=== PATIENT | female | born 1955 | race Caucasian/White ===

== ENCOUNTER → 2018-02-16 09:50 | Outpatient (CLI) | payer OTHER, SELFPAY ==
--- NOTE | 2018-02-16 09:54 | US_ITS ---
STUDY: ABDOMINAL ULTRASOUND - RIGHT UPPER QUADRANT REASON FOR VISIT: Female, 62 years old. Epigastric pain TECHNIQUE: Ultrasound evaluation of the right upper quadrant was performed with real-time and static hackett-scale imaging. TECHNICAL QUALITY: Adequate. COMPARISON: None. FINDINGS: Liver: The liver measures 15.3 cm. There is normal echogenicity of the liver. The bile ducts are within normal limits. There is hepatic color flow. The direction of portal flow is hepatopetal. There is a left hepatic 1.9 cm cyst. Gallbladder: Normal distended gallbladder. The gallbladder wall measures 3.2 mm. There is a positive sonographic Brown's sign. There is no pericholecystic fluid. Cholelithiasis is noted with diffuse posterior acoustic shadowing of the gallbladder. Common Bile Duct (C.B.D.): The common bile duct measures 3.1 mm. Pancreas: Normal size of the head, body and tail of the pancreas. There is normal echogenicity of the pancreas. There is no demonstrated pancreatic mass or cyst. Right Kidney: Normal size of the right kidney. The right kidney measures 11.1 x 5.1 x 5.3 cm. Normal renal cortex. The right cortex measures 1.7 cm. There is no demonstrated renal mass or cyst. There is no right hydronephrosis. US/Abdomen Limited IMPRESSION: Borderline gallbladder wall thickness with cholelithiasis and positive sonographic Brown's sign. No significant biliary dilatation. Left hepatic cyst. Electronically Signed: Eric Butler DO at 9:36 EDT Tel [phone], Service support ,
== END ==
PROVIDERS: Family Provider Family Medicine; PCP Family Medicine; Visit Provider Family Medicine
DX: R10.10 Upper abdominal pain, unspecified (principal)
CPT/HCPCS: 76705

== ENCOUNTER 2018-03-08 07:23 | Day surgery (SDC) | payer OTHER, SELFPAY ==
[2018-03-08] VITALS (10 sets, daily range): BP systolic 133–164; BP diastolic 80–99; PULSE 59–97; RESP 16–18; TEMP 36.4–37.2; O2SAT 90–98; BMI 35.8
--- NOTE | 2018-03-08 07:34 | EKG12_ITS ---
Test Reason : PREOP Blood Pressure : / mmHG Vent. Rate : 068 BPM Atrial Rate : 068 BPM P-R Int : 182 ms QRS Dur : 092 ms QT Int : 418 ms P-R-T Axes : 043 -04 042 degrees QTc Int : 444 ms Normal sinus rhythm Normal ECG No previous ECGs available Confirmed by TONG CARRERA, EMILY ([id number]), film editor supervisor SAMMY JACQUES ([id number]) on 03/09/2018 12:55:18 PM Referred By: Reddy Beaulieu Confirmed By:EMILY FORTUNE MD
[2018-03-08 08:16] LABS: Anion Gap 7 (5-15); BUN 9 mg/dL (7-18); BUN/Creat Ratio 13.4 RATIO (10-20); Calcium,Total 8.9 mg/dL (8.5-10.1); Chloride 105 mmol/L (98-107); Creatinine, Serum 0.67 mg/dL (0.55-1.02); EST Glomerular Filtration Rate 95 mL/min (>60); Est Glom Filt Rate - Afr Amer 115 mL/min (>60); Glucose 100 mg/dL (74-106); Potassium 3.7 mmol/L (3.5-5.1); Sodium Level 141 mmol/L (136-145); Thyroid Stim Hormone (TSH) 6.97 uIU/mL (0.358-3.74)
[2018-03-08] MEDS: Cefazolin 2 GM in 0.9% Normal Saline 100 ML IV (09:16)
--- NOTE | 2018-03-08 09:25 | DCINST_ITS ---
Discharge Diet: Light diet - advance as tolerated Discharge Activity: May Not Drive - for 2-3 days or while taking narcotic pain medications., - - Do not drive, work heavy equipment or sign legal documents for 24 hours. May shower in (days): 1 - with the bandage in place. Additional Activity Instructions:: Pain medication may cause nausea. You should typically eat light foods as you take your pain medications. Pain medication may also cause constipation. If this is a problem for you, please discuss with your doctor. Call your doctor if your incision/area has: Continuous Slow Oozing, Sudden Increased Bleeding, Increased Pain/ Swelling, Increased Redness, Foul Smelling Discharge Call your doctor if you observe: Fever of 101 or Higher Suture Line Care: Avoid Pulling/Pushing, Avoid Pinching/Bending Additional Dressing/Incision Instructions:: Leave operative bandaids on for 2 days. When you remove dressing, leave Steri-Strips on until your follow-up appointment, or until the Steri-Strips fall off on their own. Allergies/Adverse Reactions: Allergies No Known Allergies Allergy (Verified 03/05/18 12:39) Medications to take at Discharge lisinopril 10 mg tablet 10 mg PO QDAY 02/26/18 Chlorthalidone 12.5 mg PO DAILY 03/05/18 Levothyroxine [Synthroid] 175 mcg PO DAILY 03/05/18 Paroxetine [Paxil] 10 mg PO DAILY 03/05/18 Oxycodone HCl/Acetaminophen [Percocet 5/325] 1 - 2 tab PO Q4H PRN PRN 4 Days # 30 tab 03/08/18 The following prescriptions were given: Oxycodone HCl/Acetaminophen [Percocet 5/325] 1 - 2 tab PO Q4H PRN PRN 4 Days # 30 tab PRN Reason: Pain Primary Care Physician: Ravi Maldonado [Primary Care Provider] - Please Follow Up With: Reddy Beaulieu MD - Please call [phone] to schedule an appointment. When: 7 days after your surgery.
--- NOTE | 2018-03-08 09:27 | OP.PCM_ITS ---
Problem List (1) Calculus of gallbladder with acute cholecystitis without obstruction Status: Acute Report of Operation Date of Procedure: 03/08/18 Pre-Operative Diagnosis: K80.00 calculus of the gallbladder with cholecystitis without biliary obstruction unspecified cholecystitis acuity Post-Operative Diagnosis: SAME Surgery/Procedure Performed:: Laparoscopic cholecystectomy Type of Anesthesia:: General Anesthesiologist: Rell Oviedo Estimated Blood Loss (mL): <25 CC Description of Procedure: Patient was brought into the operating room placed in the supine position. Under excellent general trach intubation the abdomen was sterilely prepped and draped in usual fashion. Local was injected intraumbilically. Dissection was carried down to the fascia. Fascia was grasped with a [place]. Varies needle was placed inside the abdomen. The abdomen was insufflated to 15 torr. A 10/ 12 trocar was placed without difficulty. Patient was placed in the head up and rotated to the left position. A subxiphoid #5 trocar was placed, another #5 trocar was placed inferior to this, and finally a #5 trocar was placed laterally. All these under direct visualization without injury to underlying structures. Patient had moderate amount of adhesions on the liver and gallbladder which were taken down with electrocautery. Gallbladder was grasped and directed in a cephalad direction infundibulum was grasped retracted laterally I dissected out the cystic duct and the cystic artery and the liver bed identifying this triangle quite well. I placed hemoclips proximally and distally on the duct and ligated the duct identified the cystic artery place hemoclips proximally distally ligated the artery deliver the gallbladder from the gallbladder bed with use of electrocautery. I had excellent hemostasis. I placed a specimen a specimen bag and delivered through the umbilical port. I irrigated the right upper quadrant good hemostasis was noted. I removed all the trochars under direct visualization good hemostasis was noted. Close the fascia the umbilical port with a figure 8 stitch of 0 Vicryl. Incisions were closed with a particular stitches of 4-0 Monocryl. Steri-Strips are applied. Sterile dressings were applied patient tolerated the procedure well. - Admit VTE Documentation VTE Present on Admission: No VTE Mechan Device Prophylaxis: SCD's VTE Pharm Prophylaxis ordered?: No Reason prophylaxis not ordered:: Treatment Not Indicated
--- NOTE | 2018-03-08 09:35 | GALL_PTH ---
PATIENT: YUMIKO GARCIA LOC: [facility] [place] U#:[id number] AGE/SX: 62/F ROOM: RE03/08/[address]: Dr. Reddy Beaulieu MD : [id number] BED: DIS: 03/08/2018 SPEC #: [id number] RECD: 03/08/18 09:35 STATUS: TIM FANNY #: [id number] SADE: 03/08/18 09:[address]: Reddy Beaulieu DEPT: SURGICAL PATHOLOGY RECD BY: William Patel ENTERED: 03/08/18 12:17 SP TYPE: KATHI DELACRUZ DR: Dr. Ravi Maldonado MD Tissues: Gallbladder, NOS Procedures: Surgery Specimen Level III HEADER OPERATION: Laparoscopic cholecystectomy with IOC PRE-OP DIAGNOSIS: Calculus of gallbladder with cholecystitis TISSUE SUBMITTED: Gallbladder MICROSCOPIC DIAGNOSIS Gallbladder: Chronic cholecystitis and cholelithiasis. SJ:gabby 03/09/18 MICROSCOPIC DESCRIPTION Slides are reviewed. GROSS DESCRIPTION Received is one container labeled with the patient's name and designated gallbladder. The specimen consists of a gallbladder measuring 8 cm in length and 3 cm in diameter. The external surface is pink-barrett, smooth and glistening for the most part. Focally it is granular, hemorrhagic and contains cautery artifact. The gallbladder contains a small amount of green-yellow mucoid bile and multiple ovoid to slightly irregular greenish-yellow to orange stones. The largest stone measures 2.5 cm in greatest dimension and multiple smaller stones are also noted measuring in aggregate 2.5 x 3 x 1 cm. Some of the stones are also impacted at the cystic duct. The mucosa is bile-stained and without any mass lesions. The gallbladder wall measures up to 0.4 cm in thickness. An increased amount of subserosal fat is also noted. [employer] sections from the gallbladder and the cystic duct are submitted in one cassette. / SJ:gabby 03/08/18 TC:3 CPT: 59233
[2018-03-08] MEDS: Bupivacaine Mpf 0.5% 30 ML VIAL (09:58)
[2018-03-08] MEDS: oxyCODONE 5 MG Tablet PO (12:13)
== END 2018-03-08 13:43 | disposition home or self-care (01) ==
LOC: SDC 07:24 → AC 07:25
PROVIDERS: Anesthesiology; Family Provider Family Medicine; PCP Family Medicine; Visit Provider Surgery
PROC: (CPT 47610; principal; 2018-03-08 09:15)
DX: K80.12 Calculus of gallbladder with acute and chronic cholecystitis without obstruction (principal); I10 Essential (primary) hypertension; K21.9 Gastro-esophageal reflux disease without esophagitis; E06.9 Thyroiditis, unspecified; Z79.899 Other long term (current) drug therapy; Z78.0 Asymptomatic menopausal state
CPT/HCPCS: 47562; 80048; 84443; 88304; 93005; J7120; J2405

== ENCOUNTER → 2023-01-03 | Outpatient (CLI) | payer MEDICARE, OTHER, SELFPAY ==
--- NOTE | 2023-01-03 16:50 | RAD_ITS ---
STUDY: X-RAY - RIGHT ANKLE REASON FOR EXAM: Female, 67 years old patient with right-sided ankle injury. TECHNIQUE: 3 view(s) of the ankle. COMPARISON: None. FINDINGS: Normal visualized distal tibia and fibula. Normal medial and lateral malleoli. Normal tibiotalar articulation and ankle mortise. There is a plantar calcaneal spur. There is some chondrocalcinosis of the plantar fascia. Tarsal bones have normal alignment. There is moderately severe soft tissue swelling. RAD/Ankle min 3 Views IMPRESSION: 1. Calcaneal spur. 2. Soft tissue swelling. Electronically Signed: Laurence Blue MD at 0:33 EST ,
== END | disposition home or self-care (01) ==
LOC: RAD 16:46
PROVIDERS: PCP Family Medicine; Referring Provider Family Medicine; Visit Provider Family Medicine
DX: S99.911A Unspecified injury of right ankle, initial encounter (principal)
CPT/HCPCS: 73610

== ENCOUNTER → 2025-01-15 | Outpatient (CLI) | payer MEDICARE, OTHER, SELFPAY ==
[2025-01-15 15:34] LABS: Absolute Lymphocyte Count 1.48 X10^3/uL (0.83-4.51); Absolute Neutrophil Count 3.1 X10^3/uL (2.0-7.7); Basophil# 0.04 X10^3/uL; Basophil% 0.8 % (0-1); Eosinophil# 0.19 X10^3/uL; Eosinophils% 3.6 % (0-5); Hematocrit 46.2 % (37-47); Hemoglobin 15.1 g/dL (12.0-15.0); Lymphocyte # 1.48 X10^3/ul (0.83-4.51); Lymphocyte % 28.1 % (19-41); Mean Corp Hgb Conc 32.7 g/dL (32-36); Mean Corpuscular Hgb 30.7 pg (27.0-32.0); Mean Corpuscular Volume 93.9 fL (81-99); Mean Platelet Vol. 10.6 fl (6.2-12.0); Monocyte# 0.44 X10^3/uL; Monocyte% 8.4 % (0-10); NRBC Flagged by Analyzer 0 % (0-5); Neutrophil # 3.08 X10^3/uL (2.7-7.7); Neutrophil % 58.5 % (47-70); Platelet Count 240 K/mm3 (150-450); RBC Distribution Width CV 13.2 % (11.6-14.6); RBC Distribution Width SD 45.1 fl (35.1-43.9); Red Blood Count 4.92 M/mm3 (4.2-5.4); White Blood Count 5.3 K/mm3 (4.4-11.0)
[2025-01-15 16:14] LABS: ALB/GLOB Ratio 1.2 RATIO (0.9-2.4); AST(SGOT) 16 U/L (15-37); Alanine Aminotransfer ALT/SGPT 22 U/L (13-56); Albumin, Serum 3.7 g/dL (3.2-5.0); Alkaline Phosphatase 66 U/L (45-117); Anion Gap 7 (5-15); BUN 9 mg/dL (7-18); BUN/Creat Ratio 15.7 RATIO (10-20); Calcium,Total 9.5 mg/dL (8.5-10.1); Chloride 104 mmol/L (98-107); Cholesterol 174 mg/dL (200); Creatinine, Serum 0.57 mg/dL (0.55-1.02); EST Glomerular Filtration Rate 111 mL/min (>60); Est Glom Filt Rate - Afr Amer 135 mL/min (>60); Ferritin 227 ng/mL (8-252); Globulin 3.2 g/dL (2.2-4.2); Glucose 99 mg/dL (74-106); High Density Lipoprotein 90 mg/dL; Iron 106 ug/dL (50-170); Protein, Total 6.9 g/dL (6.4-8.2); Sodium Level 140 mmol/L (136-145); T4 Free Direct 0.89 ng/dL (0.76-1.46); Triglycerides 41 mg/dL; Very Low Density Lipoprotein 8 mg/dL (5-40)
[2025-01-16 14:35] LABS: Vitamin B12 210 pg/mL (211-911); Vitamin D,25 Hydroxy 35.4 ng/mL
== END | disposition home or self-care (01) ==
LOC: BFHLAB 11:22
PROVIDERS: PCP Nurse Practitioner Family; Visit Provider Nurse Practitioner Family
DX: I10 Essential (primary) hypertension (principal); E03.9 Hypothyroidism, unspecified; E78.5 Hyperlipidemia, unspecified; R53.83 Other fatigue; D50.9 Iron deficiency anemia, unspecified; E55.9 Vitamin D deficiency, unspecified
CPT/HCPCS: 36415; 80053; 80061; 82306; 82607; 82728; 83540; 84439; 84443; 85025

== ENCOUNTER → 2025-05-20 | Outpatient (CLI) | payer MEDICARE, OTHER, SELFPAY ==
[2025-05-20 16:26] LABS: Thyroid Stim Hormone (TSH) 0.169 uIU/mL (0.300-4.200)
[2025-05-20 16:27] LABS: Rheumatoid Factor < 10.0 IU/mL (<15); Uric Acid 4.7 mg/dL (2.6-6.0)
--- OUTSIDE RECORDS SUMMARY | 2025-05-20 22:16 | XMS RPT_ITS | CCD ---
Author Organization [facility] Care Team Providers Care Folder Gluer Operator Name Role Phone Dr. Ravi Maldonado Attending Dr. Ravi Lopez Primary Care Bria Louis Attending Unavailable Bria Sanchez Primary Care Unavailable Problems Problem Classification Problem Date Documented Da te Episodic/Chronic Essential hypertension (1 source) Essential (primary) hypertension; Translations: [Essential (primary) hypertension] Onset: 01-28-2025 Chronic Other screening for suspected conditions (not mental disorders or infectious disease) (3 sources) Encounter for screening mammogram for malignant neoplasm of breast; Translations: [Encntr screen mammogram for malignant neoplasm of breast] Onset: 07-20-2023 Episodic Residual codes; unclassified (3 sources) Asymptomatic menopausal state; Translations: [Asymptomatic menopausal state] Onset: 07-20-2023 Episodic Results Test Name Value Interpretation Reference Range Facil ity Vitamin B12on 01-16-2025 Cobalamin (Vitamin B12) [Mass/Vol] 210 pg/mL Low 211-911 [facility] Comment on above: Performed By: #### L 500.4100, L506.1000, L500.4050, L503.6150, L503.6550, L506.0400, L100.0100, L503.0105, L501.9520 #### [facility] [address] [place], [address] Vitamin D,25 Hydroxyon 01-16 Vitamin D 25-OH 35.4 ng/mL Normal [facility] Comment on above: Result Comment: Sherice min D 25(OH) Status Range Deficiency <20 ng/mL (50nmol/L) Insufficiency 20 - 30 ng/mL (50 - 75 nmol/L) Sufficiency 30 - 100 ng/mL (75 - 250 nmol/L) Toxicity >100 ng/mL (>250 nmol/L) Performed By: #### L 500.4100, L506.1000, L500.4050, L503.6150, L503.6550, L506.0400, L100.0100, L503.0105, L501.9520 #### [facility] [address] [place], [address] CBC W/Diff, Automatedon 12-28 Absolute Lymph 1.48 X10 3/uL Normal 0.83-4.51 [facility] Comment on above: Performed By: #### L 500.4100, L506.1000, L500.4050, L503.6150, L503.6550, L506.0400, L100.0100, L503.0105, L501.9520 #### [facility] [address] [place], [address] Absolute Neut 3.1 X10 3/uL Normal 2.0-7.7 [facility] Comment on above: Performed By: #### L 500.4100, L506.1000, L500.4050, L503.6150, L503.6550, L506.0400, L100.0100, L503.0105, L501.9520 #### [facility] [address] [place], [address] Basophils/100 WBC (Bld) 0.8 % Normal 0-1 [facility] Comment on above: Performed By: #### L 500.4100, L506.1000, L500.4050, L503.6150, L503.6550, L506.0400, L100.0100, L503.0105, L501.9520 #### [facility] [address] [place], [address] Eosinophils/100 WBC (Bld) 3.6 % Normal 0-5 [facility] Comment on above: Performed By: #### L 500.4100, L506.1000, L500.4050, L503.6150, L503.6550, L506.0400, L100.0100, L503.0105, L501.9520 #### [facility] [address] [place], [address] Erythrocyte distribution width (RBC) [Ratio] 13.2 % Normal 11.6-14.6 [facility] Comment on above: Performed By: #### L 500.4100, L506.1000, L500.4050, L503.6150, L503.6550, L506.0400, L100.0100, L503.0105, L501.9520 #### [facility] [address] [place], [address] Hematocrit (Bld) [Volume fraction] 46.2 % Normal 37-47 [facility] Comment on above: Performed By: #### L 500.4100, L506.1000, L500.4050, L503.6150, L503.6550, L506.0400, L100.0100, L503.0105, L501.9520 #### [facility] [address] [place], [address] Hemoglobin (Bld) [Mass/Vol] 15.1 g/dL High 12.0-15.0 [facility] Comment on above: Performed By: #### L 500.4100, L506.1000, L500.4050, L503.6150, L503.6550, L506.0400, L100.0100, L503.0105, L501.9520 #### [facility] [address] [place], [address] IG% 0.600 Normal 0.0-0.9 [facility] Comment on above: Result Comment: IG% - Immature Granulocytes (promyelocytes, myelocytes and metamyelocytes) > 1% indicates that a LEFT SHIFT is Present. Performed By: #### L 500.4100, L506.1000, L500.4050, L503.6150, L503.6550, L506.0400, L100.0100, L503.0105, L501.9520 #### [facility] [address] [place], [address] Lymphocytes/100 WBC (Bld) 28.1 % Normal 19-41 [facility] Comment on above: Performed By: #### L 500.4100, L506.1000, L500.4050, L503.6150, L503.6550, L506.0400, L100.0100, L503.0105, L501.9520 #### [facility] [address] [place], [address] MCH (RBC) [Entitic mass] 30.7 pg Normal 27.0-32.0 [facility] Comment on above: Performed By: #### L 500.4100, L506.1000, L500.4050, L503.6150, L503.6550, L506.0400, L100.0100, L503.0105, L501.9520 #### [facility] [address] [place], [address] MCHC (RBC) [Mass/Vol] 32.7 g/dL Normal 32-36 [facility] Comment on above: Performed By: #### L 500.4100, L506.1000, L500.4050, L503.6150, L503.6550, L506.0400, L100.0100, L503.0105, L501.9520 #### [facility] [address] [place], [address] MCV (RBC) [Entitic vol] 93.9 fL Normal 81-99 [facility] Comment on above: Performed By: #### L 500.4100, L506.1000, L500.4050, L503.6150, L503.6550, L506.0400, L100.0100, L503.0105, L501.9520 #### [facility] [address] [place], [address] Monocytes/100 WBC (Bld) 8.4 % Normal 0-10 [facility] Comment on above: Performed By: #### L 500.4100, L506.1000, L500.4050, L503.6150, L503.6550, L506.0400, L100.0100, L503.0105, L501.9520 #### [facility] [address] [place], [address] Neutrophils/100 WBC (Bld) 58.5 % Normal 47-70 [facility] Comment on above: Performed By: #### L 500.4100, L506.1000, L500.4050, L503.6150, L503.6550, L506.0400, L100.0100, L503.0105, L501.9520 #### [facility] [address] [place], [address] Nucleated RBC (Bld) [#/Vol] 0 10*3/uL Normal 0-5 [facility] Comment on above: Performed By: #### L 500.4100, L506.1000, L500.4050, L503.6150, L503.6550, L506.0400, L100.0100, L503.0105, L501.9520 #### [facility] [address] [place], [address] Platelet mean volume (Bld) [Entitic vol] 10.6 fL Normal 6.2-12.0 [facility] Comment on above: Performed By: #### L 500.4100, L506.1000, L500.4050, L503.6150, L503.6550, L506.0400, L100.0100, L503.0105, L501.9520 #### [facility] [address] [place], [address] Platelets (Bld) [#/Vol] 240 10*3/uL Normal 150-450 [facility] Comment on above: Performed By: #### L 500.4100, L506.1000, L500.4050, L503.6150, L503.6550, L506.0400, L100.0100, L503.0105, L501.9520 #### [facility] [address] [place], [address] RBC (Bld) [#/Vol] 4.92 10*6/uL Normal 4.2-5.4 [facility] Comment on above: Performed By: #### L 500.4100, L506.1000, L500.4050, L503.6150, L503.6550, L506.0400, L100.0100, L503.0105, L501.9520 #### [facility] [address] [place], [address] RDW SD 45.1 fl High 35.1-43.9 [facility] Comment on above: Performed By: #### L 500.4100, L506.1000, L500.4050, L503.6150, L503.6550, L506.0400, L100.0100, L503.0105, L501.9520 #### [facility] [address] [place], [address] WBC (Bld) [#/Vol] 5.3 10*3/uL Normal 4.4-11.0 [facility] Comment on above: Performed By: #### L 500.4100, L506.1000, L500.4050, L503.6150, L503.6550, L506.0400, L100.0100, L503.0105, L501.9520 #### [facility] [address] [place], [address] Comprehensive Metabolic Prof ilon 01-15-2025 Albumin [Mass/Vol] 3.7 g/dL Normal 3.2-5.0 [facility] Comment on above: Performed By: #### L 500.4100, L506.1000, L500.4050, L503.6150, L503.6550, L506.0400, L100.0100, L503.0105, L501.9520 #### [facility] [address] [place], [address] Albumin/Globulin [Mass ratio] 1.2 {ratio} Normal 0.9-2.4 [facility] Comment on above: Performed By: #### L 500.4100, L506.1000, L500.4050, L503.6150, L503.6550, L506.0400, L100.0100, L503.0105, L501.9520 #### [facility] [address] [place], [address] ALK P 66 U/L Normal 45-117 [facility] Comment on above: Performed By: #### L 500.4100, L506.1000, L500.4050, L503.6150, L503.6550, L506.0400, L100.0100, L503.0105, L501.9520 #### [facility] [address] [place], [address] ALT [Catalytic activity/Vol] 22 U/L Normal 13-56 [facility] Comment on above: Performed By: #### L 500.4100, L506.1000, L500.4050, L503.6150, L503.6550, L506.0400, L100.0100, L503.0105, L501.9520 #### [facility] [address] [place], [address] AST [Catalytic activity/Vol] 16 U/L Normal 15-37 [facility] Comment on above: Performed By: #### L 500.4100, L506.1000, L500.4050, L503.6150, L503.6550, L506.0400, L100.0100, L503.0105, L501.9520 #### [facility] [address] [place], [address] Bilirubin [Mass/Vol] 0.50 mg/dL Normal 0.20-1.00 [facility] Comment on above: Result Comment: For patients on eltrombopag therapy, use of Dimension [place] TBIL is not recommended. Performed By: #### L 500.4100, L506.1000, L500.4050, L503.6150, L503.6550, L506.0400, L100.0100, L503.0105, L501.9520 #### [facility] [address] [place], [address] BUN/CRE 15.7 RATIO Normal 10-20 [facility] Comment on above: Performed By: #### L 500.4100, L506.1000, L500.4050, L503.6150, L503.6550, L506.0400, L100.0100, L503.0105, L501.9520 #### [facility] [address] [place], [address] CA,Total 9.5 mg/dL Normal 8.5-10.1 [facility] Comment on above: Performed By: #### L 500.4100, L506.1000, L500.4050, L503.6150, L503.6550, L506.0400, L100.0100, L503.0105, L501.9520 #### [facility] [address] [place], [address] Chloride [Moles/Vol] 104 mmol/L Normal 98-107 [facility] Comment on above: Performed By: #### L 500.4100, L506.1000, L500.4050, L503.6150, L503.6550, L506.0400, L100.0100, L503.0105, L501.9520 #### [facility] [address] [place], [address] CO2 [Moles/Vol] 28.0 mmol/L Normal 21.0-32.0 [facility] Comment on above: Performed By: #### L 500.4100, L506.1000, L500.4050, L503.6150, L503.6550, L506.0400, L100.0100, L503.0105, L501.9520 #### [facility] [address] [place], [place], [address] Creatinine [Mass/Vol] 0.57 mg/dL Normal 0.55-1.02 [facility] Comment on above: Result Comment: The validity of the calculated GFR GFRAA in patients over 70 years has not been determined. Clinical correlation is essential. Performed By: #### L 500.4100, L506.1000, L500.4050, L503.6150, L503.6550, L506.0400, L100.0100, L503.0105, L501.9520 #### [facility] [address] [place], [place], [address] EST GFR - AA 135 mL/min Normal >60 [facility] Comment on above: Result Comment: Afri can Iranian GFR Calc Performed By: #### L 500.4100, L506.1000, L500.4050, L503.6150, L503.6550, L506.0400, L100.0100, L503.0105, L501.9520 #### [facility] [address] [place], [place], [id number] GAP 7 Normal 5-15 [facility] Comment on above: Performed By: #### L 500.4100, L506.1000, L500.4050, L503.6150, L503.6550, L506.0400, L100.0100, L503.0105, L501.9520 #### [facility] [address] [place], [address] GFR/1.73 sq M.predicted among non-blacks MDRD (S/P/Bld) [Vol rate/Area] 111 mL/min/{1.73_m2} Normal >60 [facility] Comment on above: Result Comment: Non- GFR Calc Performed By: #### L 500.4100, L506.1000, L500.4050, L503.6150, L503.6550, L506.0400, L100.0100, L503.0105, L501.9520 #### [facility] [address] [place], [address] Globulin (S) [Mass/Vol] 3.2 g/dL Normal 2.2-4.2 [facility] Comment on above: Performed By: #### L 500.4100, L506.1000, L500.4050, L503.6150, L503.6550, L506.0400, L100.0100, L503.0105, L501.9520 #### [facility] [address] [place], [address] Glucose [Mass/Vol] 99 mg/dL Normal 74-106 [facility] Comment on above: Performed By: #### L 500.4100, L506.1000, L500.4050, L503.6150, L503.6550, L506.0400, L100.0100, L503.0105, L501.9520 #### [facility] [address] [place], [address] Potassium [Moles/Vol] 4.0 mmol/L Normal 3.5-5.1 [facility] Comment on above: Performed By: #### L 500.4100, L506.1000, L500.4050, L503.6150, L503.6550, L506.0400, L100.0100, L503.0105, L501.9520 #### [facility] [address] [place], [address] Sodium [Moles/Vol] 140 mmol/L Normal 136-145 [facility] Comment on above: Performed By: #### L 500.4100, L506.1000, L500.4050, L503.6150, L503.6550, L506.0400, L100.0100, L503.0105, L501.9520 #### [facility] [address] [place], [address] T PROT 6.9 g/dL Normal 6.4-8.2 [facility] Comment on above: Performed By: #### L 500.4100, L506.1000, L500.4050, L503.6150, L503.6550, L506.0400, L100.0100, L503.0105, L501.9520 #### [facility] [address] [place], [place], [id number] Urea nitrogen [Mass/Vol] 9 mg/dL Normal 7-18 [facility] Comment on above: Performed By: #### L 500.4100, L506.1000, L500.4050, L503.6150, L503.6550, L506.0400, L100.0100, L503.0105, L501.9520 #### [facility] [address] [place], [address] Ferritinon 01-15-2025 Ferritin [Mass/Vol] 227 ng/mL Normal 8-252 [facility] Comment on above: Performed By: #### L 500.4100, L506.1000, L500.4050, L503.6150, L503.6550, L506.0400, L100.0100, L503.0105, L501.9520 #### [facility] [address] [place], [address] Ironon 01-15-2025 Iron [Mass/Vol] 106 ug/dL Normal 50-170 [facility] Comment on above: Performed By: #### L 500.4100, L506.1000, L500.4050, L503.6150, L503.6550, L506.0400, L100.0100, L503.0105, L501.9520 #### [facility] [address] [place], [address] Lipid Profileon 01-15-2025 Cholesterol [Mass/Vol] 174 mg/dL Normal 200 [facility] Comment on above: Result Comment: <200 mg/dL Desirable 200-240 mg/dL Borderline >240 mg/dL High Risk Performed By: #### L 500.4100, L506.1000, L500.4050, L503.6150, L503.6550, L506.0400, L100.0100, L503.0105, L501.9520 #### [facility] [address] [place], [address] Cholesterol in HDL [Mass/Vol] 90 mg/dL Normal [facility] Comment on above: Result Comment: The drugs N-Acetylcysteine and Metamizole may falsely depress this assay. Reference Range HDL <40 mg/dL Low HDL Cholesterol HDL >or= 60 mg/dL High HDL Cholesterol Performed By: #### L 500.4100, L506.1000, L500.4050, L503.6150, L503.6550, L506.0400, L100.0100, L503.0105, L501.9520 #### [facility] [address] [place], [address] Cholesterol in LDL [Mass/Vol] 76 mg/dL Normal 0-130 [facility] Comment on above: Performed By: #### L 500.4100, L506.1000, L500.4050, L503.6150, L503.6550, L506.0400, L100.0100, L503.0105, L501.9520 #### [facility] [address] [place], [address] Cholesterol in VLDL [Mass/Vol] 8 mg/dL Normal 5-40 [facility] Comment on above: Performed By: #### L 500.4100, L506.1000, L500.4050, L503.6150, L503.6550, L506.0400, L100.0100, L503.0105, L501.9520 #### [facility] [address] [place], [address] Triglyceride [Mass/Vol] 41 mg/dL Normal [facility] Comment on above: Result Comment: The drugs N-Acetylcysteine and Metamizole may falsely depress this assay. Serum Triglycerides Reference Interval Normal <150 mg/dL Borderline high 150 - 199 mg/dL High 200 - 499 mg/dL Very High > or = 500 mg/dL Performed By: #### L 500.4100, L506.1000, L500.4050, L503.6150, L503.6550, L506.0400, L100.0100, L503.0105, L501.9520 #### [facility] [address] [place], [address] T4 Free Directon 01-15-2025 T4 FREE DIRECT 0.89 ng/dL Normal 0.76-1.46 [facility] Comment on above: Performed By: #### L 500.4100, L506.1000, L500.4050, L503.6150, L503.6550, L506.0400, L100.0100, L503.0105, L501.9520 #### [facility] [address] [place], [address] Thyroid Stim Hormone (TSH)on 01-15-2025 TSH 8.180 uIU/mL High 0.358-3.740 [facility] Comment on above: Performed By: #### L 500.4100, L506.1000, L500.4050, L503.6150, L503.6550, L506.0400, L100.0100, L503.0105, L501.9520 #### [facility] [address] [place], [address] Encounters Encounter Date Encounter Type Care Provider Facility Start: 01-15-2025 End: 01-15-2025 ambulatory Bria Sanchez Facility:[facility] Start: 07-20-[address] Ravi Maldonado Facility:[id number] Payers Date Payer Category Payer Self-pay 2021 Medicare [id number] 2021 Unknown [id number] 1955 Unknown [id number] Unknown [id number] Progress note 01-18-2022 Note Date & Type Note Facility 01-18-2022 Note HNO ID: [id number] Author: Ivan Mcdonald MD Service: ? Author Type: Physician Type: Progress Notes Filed: 01/18/2022 11:10 AM Note Text: ASSESSMENT/PLAN: 1. Epiretinal membrane (ERM) of right eye - ICD9: 362.56, ICD10: H35.371 (primary diagnosis) -stable/ monitor. - OCT MACULA CIRRUS OU (BOTH EYES) 2. Ptosis of right eyelid - ICD9: 374.30, ICD10: H02.401 -stable/ observe. 3. Pseudophakia of both eyes - ICD9: V43.1, ICD10: Z96.1 - Intraocular lens in good position both eyes 4. Rosacea - ICD9: 695.3, ICD10: L71.9 Continue care with primary care physician. Ivan Mcdonald MD I have confirmed and edited as necessary the relevant ophthalmic history, review of systems, surgical history, and ophthalmological examination findings as obtained by the ophthalmic technical staff. I have seen and examined Uma Flaherty. I have discussed the examination findings, diagnosis, and treatment options with Uma Flaherty and/or her family. I have also reviewed and agree with the assessment and plan as stated above and agree with all its relevant components. I gave the patient the opportunity to ask questions about the findings, diagnosis, and treatment options. [facility] Progress note 01-07-2022 Note Date & Type Note Facility 01-07-2022 Note HNO ID: [id number] Author: Santa Sun OD Service: ? Author Type: SENIOR OFFICE ASSISTANT Type: Progress Notes Filed: 01/07/2022 3:43 PM Note Text: ASSESSMENT/PLAN: 1. Ptosis of right eyelid - ICD9: 374.30, ICD10: H02.401 (primary diagnosis) Continue to monitor. 2. Subconjunctival hemorrhage, right - ICD9: 372.72, ICD10: H11.31 Discussed self-limiting nature of problem in absence of underlying system complications such as hypertension, diabetes, and use of blood thinners. Patient reports all stable. Patient will monitor for slow resolution. Instruct patient to immediately report any change in condition outside of expected and discussed symptoms. 3. Episcleritis of right eye - ICD9: 379.00, ICD10: H15.101 Current Ophthalmic Meds prednisoLONE acetate (PRED FORTE, ECONOPRED PLUS) 1 % ophthalmic suspension Use 1 Drop in the right eye four times daily. Return in one week for follow up Santa Sun OD [facility] Summary Purpose Family History No Family History Records FoundNo Family History Records FoundNo Family History Records Found Advance Directives No Advanced Directives Records FoundNo Advanced Directives Records FoundNo Advanced Directives Records Found Additional Source Comments INFORMATION SOURCE (unrecogn ized section and content) DATE CREATED AUTHOR 02/17/2022 [facility] DATE CREATED AUTHOR AUTHOR'S ORGANIZ ATION 07/22/2023 [facility] DATE CREATED AUTHOR AUTHOR'S ORGANIZ ATION 01/30/2025 [facility] FOR RECORDS PERTAINING TO PATIENTS WHO ARE OR HAVE BEEN ENROLLED IN A CHEMICAL DEPENDENCY/SUBSTANCEABUSE PROGRAM, SOME INFORMATION MAY BE OMITTED. This clinical summary was aggregated from multiple sources. Caution should be exercised in using it in the provision of clinical care. This summary normalizes information from multiple sources, and as a consequence, information in this document may materially change the coding, format and clinical context of patient data. In addition, data may be omitted in some cases. CLINICAL DECISIONS SHOULD BE BASED ON THE PRIMARY CLINICAL RECORDS. [facility]. provides no warranty or guarantee of the accuracy or completeness of information in this document.
[2025-05-22 12:09] LABS: CCP IgG Antibodies 7 units (0-19)
[2025-05-22 17:07] LABS: ANTINUCLEAR ANTIBODIES DIRECT Negative (Negative)
== END | disposition home or self-care (01) ==
LOC: LAB 12:35
PROVIDERS: PCP Nurse Practitioner Family; Referring Provider Family Medicine; Visit Provider Family Medicine
DX: E03.9 Hypothyroidism, unspecified (principal); M25.50 Pain in unspecified joint; M10.9 Gout, unspecified
CPT/HCPCS: 36415; 84439; 84443; 84550; 86038; 86200; 86431

== ENCOUNTER → 2025-07-23 | Outpatient (CLI) | payer MEDICARE, OTHER, SELFPAY ==
--- OUTSIDE RECORDS SUMMARY | 2025-07-23 21:04 | XMS RPT_ITS | CCD ---
Author Organization [facility] Inform ion Partnership [facility] Care Team Providers Care Cdl Company Driver Name Role Phone Dr. Ravi Maldonado Attending Tahira Maldonado, Dr. Ravi Dotson Primary Care Unavailradha Sanchez HYDRAMATIC MECHANIC-C, Bria Primary Care Provider [phone] Patrick CARRERA, Dr. Browning Attending Provider [phone] Patrick CARRERA, Dr. Browning Referring Provider [phone] Bria Sanchez Primary Care Unavailable Bria Sanchez Attending Unavailable Bria Sanchez Primary Care Unavailable Nallely Nguyen Attending Unavailable Nallely Nguyen Referring Unavailable NO, PHYSICIAN Primary Care Unavailable WYATT ESQUIVEL Attending Unava ilable Medications Current Medications Medication Drug Class(es) Dates Sig (Normalized) Sig (Original) chlorthalidone 25 mg oral tablet (1 source) Thiazide-like Diuretic Start: 03-05-2018 Chlorthalidone 25 MG tablet Active 12.5 mg PO DAILY March 05, 2018 12:00am levothyroxine sodium 0.175 mg oral tablet (1 source) l-Thyroxine Start: 03-05-2018 take 1 tablet by mouth once daily Levothyroxine 175 MCG tablet Active 175 ug PO DAILY March 05, 2018 12:00am lisinopril 10 mg oral tablet (1 source) Angiotensin Converting Enzyme Inhibitor Start: 02-26-2018 take 1 tablet by mouth once daily Lisinopril 10 mg tablet Active 10 mg PO daily February 26, 2018 12:00am PARoxetine hydrochloride 10 mg oral tablet (1 source) Serotonin Reuptake Inhibitor Start: 03-05-2018 take 1 tablet by mouth once daily Paroxetine Hcl 10 MG tablet Active 10 mg PO DAILY March 05, 2018 12:00am Completed/Discontinued Medications Medication Drug Class(es) Dates Sig (Normalized) Sig (Original) acetaminophen 325 mg / oxyCODONE hydrochloride 5 mg oral tablet (1 source) Opioid Agonist Start: 03-08-2018 End: 03-15-2018 Oxycodone-Acetaminop hen 1 TABLET tablet Discontinued 1 - 2 {tbl} PO EVERY 4 HOURS NEEDED as needed for Pain 30 4 March 08, 2018 12:00am March 15, 2018 1:35pm Calculus of gallbladder with acute cholecystitis without obstruction Problems Problem Classification Problem Date Documented Date Episodic/Chronic Abdominal pain (1 source) Abdominal pain; Translations: [Unspecified abdominal pain] 03-15-2018 Episodic Biliary tract disease (2 sources) Gallbladder calculus with acute cholecystitis and no obstruction; Translations: [Calculus of gallbladder with acute cholecystitis without obstruction] 03-08-2018 Episodic Essential hypertension (2 sources) Hypertensive disorder; Translations: [Essential (primary) hypertension] Onset: 01-28-2025 03-15-2018 Chronic Nausea and vomiting (1 source) Nausea and vomiting; Translations: [Nausea with vomiting, unspecified] 03-15-2018 Episodic Other nutritional; endocrine; and metabolic disorders (1 source) H/O: thyroid disorder; Translations: [Personal history of other endocrine, nutritional and metabolic disease] 03-15-2018 Episodic Other screening for suspected conditions (not mental disorders or infectious disease) (3 sources) Encounter for screening mammogram for malignant neoplasm of breast; Translations: [Encntr screen mammogram for malignant neoplasm of breast] Onset: 07-20-2023 Episodic Residual codes; unclassified (3 sources) Asymptomatic menopausal state; Translations: [Asymptomatic menopausal state] Onset: 07-20-2023 Episodic Sprains and strains (2 sources) Sprain of joints and ligaments of unspecified parts of neck, initial encounter; Translations: [Sprain of joints and ligaments of unspecified parts of neck, initial encounter] Onset: 06-22-2025 Episodic Superficial injury; contusion (4 sources) Contusion of unspecified part of head, initial encounter; Translations: [Contusion of left lower leg, initial encounter] Onset: 06-22-2025 Episodic Thyroid disorders (1 source) Hypothyroidism, unspecified; Translations: [Hypothyroidism, unspecified] Onset: 05-24-2025 Chronic Results Test Name Value Interpretation Reference Range Facility CT CERVICAL SPINE WITHOUT CO NTRASTon 06-22-2025 CT CERVICAL SPINE WITHOUT CONTRAST EXAM: CT HEAD OR BRAIN WITHOUT CONTRAST; CT CERVICAL SPINE WITHOUT CONTRAST06/22/2025 3:12 pm; 06/22/2025 3:10 pm TECHNIQUE: Axial CT images were obtained through the brain. Axial CT images were obtained through the cervical spine. Sagittal and coronal reformatted images were obtained. Dose reduction techniques were achieved by using automated exposure control and/or adjustment of mA and/or kV according to patient size and/or use of iterative reconstruction technique. HISTORY: ORDERING SYSTEM PROVIDED HISTORY: Head injury, TECHNOLOGIST PROVIDED HISTORY: Injury/Trauma Reason for exam: pain Encounter Type: Initial Mechanism of injury: fall ORDERING SYSTEM PROVIDED DIAGNOSIS CODES: ; ORDERING SYSTEM PROVIDED HISTORY: Neck pain, TECHNOLOGIST PROVIDED HISTORY: Injury/Trauma Reason for exam: pain Encounter Type: Initial Mechanism of injury: fall ORDERING SYSTEM PROVIDED DIAGNOSIS CODES: COMPARISON: None FINDINGS: Brain: Intracranial Bleed: No evidence for acute intracranial bleed. Intracranial Mass: No evidence for mass lesion. No mass effect or midline shift. Extra-axial spaces: The ventricular system is normal caliber. White/Reddy Matter: No acute cortical infarct. No significant white matter abnormality. Skull/Scalp: No evidence for skull fracture or lesion. Orbits and sinuses: The orbits appear unremarkable. Mucosal thickening in the right maxillary sinus. Cervical spine: Bones: No fracture Alignment: The alignment is anatomic. No acute subluxation. Arthritic changes: Moderate spondylosis in the lower cervical spine. Moderate degenerative change of the anterior C1-2 articulation. Disc spaces: No gross disc herniation given limitation of CT scan. Soft tissues: No soft tissue mass or large hematoma. IMPRESSION: No acute intracranial pathology No acute cervical spine fracture or subluxation. Workstation ID: [id number] Dictated by: HUA NAVA on [place] Jun 22, 2025 4:00:11 PM EDT Transcribed by: HUA NAVA on MonJun 22, 2025 4:00:11 PM EDT Finalized by: HUA NAVA on MonJun 22, 2025 4:00:11 PM EDT [facility] Comment on above: Order Comment: Injur y/Trauma or Illness?:Injury/Trauma How long have you had these symptoms (acute/chronic)?:Acute Reason for exam?:pain Type of Exam?:Initial Mechanism of injury?:fall CT HEAD OR BRAIN WITHOUT CON TRASTon 06-22-2025 CT HEAD OR BRAIN WITHOUT CONTRAST EXAM: CT HEAD OR BRAIN WITHOUT CONTRAST; CT CERVICAL SPINE WITHOUT CONTRAST06/22/2025 3:12 pm; 06/22/2025 3:10 pm TECHNIQUE: Axial CT images were obtained through the brain. Axial CT images were obtained through the cervical spine. Sagittal and coronal reformatted images were obtained. Dose reduction techniques were achieved by using automated exposure control and/or adjustment of mA and/or kV according to patient size and/or use of iterative reconstruction technique. HISTORY: ORDERING SYSTEM PROVIDED HISTORY: Head injury, TECHNOLOGIST PROVIDED HISTORY: Injury/Trauma Reason for exam: pain Encounter Type: Initial Mechanism of injury: fall ORDERING SYSTEM PROVIDED DIAGNOSIS CODES: ; ORDERING SYSTEM PROVIDED HISTORY: Neck pain, TECHNOLOGIST PROVIDED HISTORY: Injury/Trauma Reason for exam: pain Encounter Type: Initial Mechanism of injury: fall ORDERING SYSTEM PROVIDED DIAGNOSIS CODES: COMPARISON: None FINDINGS: Brain: Intracranial Bleed: No evidence for acute intracranial bleed. Intracranial Mass: No evidence for mass lesion. No mass effect or midline shift. Extra-axial spaces: The ventricular system is normal caliber. White/Reddy Matter: No acute cortical infarct. No significant white matter abnormality. Skull/Scalp: No evidence for skull fracture or lesion. Orbits and sinuses: The orbits appear unremarkable. Mucosal thickening in the right maxillary sinus. Cervical spine: Bones: No fracture Alignment: The alignment is anatomic. No acute subluxation. Arthritic changes: Moderate spondylosis in the lower cervical spine. Moderate degenerative change of the anterior C1-2 articulation. Disc spaces: No gross disc herniation given limitation of CT scan. Soft tissues: No soft tissue mass or large hematoma. IMPRESSION: No acute intracranial pathology No acute cervical spine fracture or subluxation. Workstation ID: [id number] Dictated by: HUA NAVA on MonJun 22, 2025 4:00:11 PM EDT Transcribed by: HUA NAVA on MonJun 22, 2025 4:00:11 PM EDT Finalized by: HUA NAVA on MonJun 22, 2025 4:00:11 PM EDT [facility] Comment on above: Order Comment: Injur y/Trauma or Illness?:Injury/Trauma How long have you had these symptoms (acute/chronic)?:Acute Reason for exam?:pain Type of Exam?:Initial Mechanism of injury?:fall ED Prov Noteon 06-22-2025 ED Prov Note ED PROVIDER NOTE [facility] NAME: Magaly Garcia AGE: 69 y.o. : 1955 VISIT DATE: 06/22/2025 CSN: [id number] PCP: No, Physician Chief Complaint Patient presents with Fall Patient is a 69-year-old female with no significant past medical history who presents today for concern of head injury. Patient states she was in a camper when she fell off a ladder trying to go up to the second bunk and then fell out of the camper landed directly on her head on concrete as well as hit her leg on the door. Patient endorses a right posterior scalp swelling with a throbbing headache and sensitivity to sound and light with generalized tiredness. Patient states she translated lost consciousness. Injury occurred 3 days prior. Patient not take blood thinners. Patient denies any lightheadedness, dizziness, visual changes, dysarthria, dysphagia or additional focal neurological deficits. Patient endorsing left femur pain with associated soft tissue swelling and ecchymosis. Patient has additional constitutional symptoms. No past medical history on file. No past surgical history on file. No family history on file. Social History [1] No current outpatient medications on file prior to encounter. Allergies[2] Review of Systems Constitutional: Negative for chills and fever. Eyes: Negative for pain. Respiratory: Negative for cough, chest tightness and shortness of breath. Cardiovascular: Negative for chest pain and palpitations. Gastrointestinal: Negative for abdominal pain, nausea and vomiting. Genitourinary: Negative for flank pain. Musculoskeletal: Negative for arthralgias and myalgias. Leg pain Skin: Negative for rash. Neurological: Positive for headaches. Negative for dizziness, syncope and light-headedness. Psychiatric/Behavior al: Negative for agitation. All other systems reviewed and are negative. Patient Vitals for the past 24 hrs: BP Temp Pulse Resp SpO2 Height Weight 06/22/25 1443 (!) 178/93 -- -- -- -- -- -- 06/22/25 1441 -- 97.9 degrees F (36.6 degrees C) 80 16 98 % 5' 3 88 kg (194 lb) 06/22/25 1440 -- -- -- 16 -- -- -- Physical Exam Vitals and nursing note reviewed. Constitutional: Appearance: Normal appearance. HENT: Head: Normocephalic. Comments: Right posterior scalp hematoma with no underlying palpable skull defect. No raccoon eyes or Burris sign. Stable midface. No malocclusion of jaw. Eyes: Pupils: Pupils are equal, round, and reactive to light. Cardiovascular: Rate and Rhythm: Normal rate and regular rhythm. Pulses: Normal pulses. Heart sounds: Normal heart sounds. Musculoskeletal: Cervical back: Normal range of motion. Comments: Bilateral cervicals paraspinal tenderness with associated hypertonicity. No midline spinal canal tenderness or gross deformity. Generalized tenderness to the mid femur with no evidence of gross deformity or dislocation with associated soft tissue swelling and ecchymosis. No bony tenderness of the remaining extremities x 3. Pulmonary: Effort: Pulmonary effort is normal. Breath sounds: Normal breath sounds. Skin: General: Skin is warm. Capillary Refill: Capillary refill takes less than 2 seconds. Neurological: General: No focal deficit present. Mental Status: She is alert and oriented to person, place, and time. Cranial Nerves: No cranial nerve deficit. Sensory: No sensory deficit. Motor: No weakness. Coordination: Coordination normal. Gait: Gait normal. Deep Tendon Reflexes: Reflexes normal. Psychiatric: Mood and Affect: Mood normal. Laboratory & Radiographic Imaging (if done): No results found for this visit on 06/22/25. XR Femur Left 2+ Views (Standard) Final Result No acute fracture or dislocation. Workstation ID: [id number] CT Cervical Spine Without Contrast Final Result No acute intracranial pathology No acute cervical spine fracture or subluxation. Workstation ID: [id number] CT Head Or Brain Without Contrast Final Result No acute intracranial pathology No acute cervical spine fracture or subluxation. Workstation ID: [id number] Procedures Medical Decision Making Patient seen and evaluated for concern of head injury neck pain and leg pain. Patient nonfocal neurological exam in conjunction with a negative CT head there is little clinical concern for acute intercranial process. Cervical spine did not demonstrate any evidence of acute traumatic injury. X-ray of the femur did not demonstrate any evidence of acute traumatic injury. Patient agrees assessment and plan understands reason return patient was discharged in stable condition. The patient has been informed that they may have pre-hypertension or hypertension based on a blood pressure reading in the Emergency Department. I recommend that the patient call the primary care provider listed on their discharge instructions or a physician of their choice as soon as possible to a (more content not included)... [facility] XR FEMUR LEFT 2+ VIEWS (CASSANDRA NAILS)on 06-22-2025 XR FEMUR LEFT 2+ VIEWS (STANDARD) EXAMINATION: XR FEMUR LEFT 2+ VIEWS (STANDARD) EXAM DATE: 06/22/2025 4:19 pm HISTORY: ORDERING SYSTEM PROVIDED HISTORY: Leg pain, TECHNOLOGIST PROVIDED HISTORY: Injury/Trauma Reason for exam: pain Cancer History: n Surgery, RadiationHistory: n Encounter Type: Initial Mechanism of injury: fall ORDERING SYSTEM PROVIDED DIAGNOSIS CODES: S00.93XA Contusion of head, unspecified part of head, initial encounter S13.9XXA Neck sprain, initial encounter S80.12XA Contusion of left leg COMPARISON: None TECHNIQUE: AP and lateral views left femur FINDINGS: There is no acute fracture or dislocation. The soft tissues are unremarkable. Moderate osteoarthritic changes of the left knee and left hip. IMPRESSION: No acute fracture or dislocation. Workstation ID: [id number] Dictated by: HUA NAVA on [place] Jun 22, 2025 4:57:21 PM EDT Transcribed by: HUA NAVA on [place] Jun 22, 2025 4:57:21 PM EDT Finalized by: HUA NAVA on [place] Jun 22, 2025 4:57:21 PM EDT [facility] Comment on above: Order Comment: Injur y/Trauma or Illness?:Injury/Trauma How long have you had these symptoms (acute/chronic)?:Acute Reason for exam?:pain History of cancer?:n Surgeries, chemotherapy, or radiation?:n Type of Exam?:Initial Mechanism of injury?:fall ANTINUCLEAR ANTIBODIES DIREC Ton 05-22-2025 STEPHANIE,DIRECT Negative Normal Negative [facility] Comment on above: Result Comment: Perf ormed at: - [facility] [address] [id number] Language Tutor: Magan Doyle PhD, Phone: [phone] Performed By: #### L 506.0400, L100.0100, L503.0105, L501.9520, L500.4100, L506.1000, L500.4050, L503.6150, L503.6550 #### [facility] [address] [place], [address] CCP IgG Antibodieson 025 CCP IgG Ab. 7 units Normal 0-19 [facility] Comment on above: Result Comment: Nega tive <20 Weak positive 20 - 39 Moderate positive 40 - 59 Strong positive >59 Performed at: [facility] [address] [place], [place] [id number] Language Tutor: Magan Doyle PhD, Phone: [phone] Performed By: #### L 506.0400, L100.0100, L503.0105, L501.9520, L500.4100, L506.1000, L500.4050, L503.6150, L503.6550 #### [facility] [address] [place], [address] Rheumatoid Factoron 05-20-20 25 RHEUMATOID FAC < 10.0 Normal <15 [facility] Comment on above: Performed By: #### L 506.0400, L100.0100, L503.0105, L501.9520, L500.4100, L506.1000, L500.4050, L503.6150, L503.6550 #### [facility] [address] [place], [address] Serum or plasma cyclic citru llinated peptide IgG antibody assay (units/volume)Ordered By: Nallely Nguyen on 05-20-2025 Cyclic citrullinated peptide IgG Qn 7 units 0-19 [facility] Comment on above: Negative <20 Weak po sitive 20 - 39 Moderate positive 40 - 59 Strong positive >59Performed at: [facility] [place], [place] [id number] Director: Magan Doyle PhD, Phone: [phone] Serum or plasma uric acid me asurement (mass/volume)Ordered By: Nallely Nguyen on 05-20-2025 Urate [Mass/Vol] 4.7 mg/dL 2.6-6.0 [facility] Comment on above: The drugs N-Acetylcy steine and Metamizole may falsely depress this assay. Serum rheumatoid factor dete ctionOrdered By: Nallely Nguyen on 05-20-2025 Rheumatoid factor Ql (S) < 10.0 IU/mL <15 [facility] T4 Free Directon 05-20-2025 T4 FREE DIRECT 1.60 ng/dL High 0.76-1.46 [facility] Comment on above: Performed By: #### L 506.0400, L100.0100, L503.0105, L501.9520, L500.4100, L506.1000, L500.4050, L503.6150, L503.6550 #### [facility] [address] [place], [address] T4 freeOrdered By: Nallely downs on 05-20-2025 Free T4 [Mass/Vol] 1.60 ng/dL High 0.76-1.46 [facility] TSH DL <= 0.005 mIU/L QnOrde red By: Nallely Nguyen on 05-20-2025 TSH Qn 0.169 uIU/mL Low 0.300-4.200 [facility] Thyroid Stim Hormone (TSH)on 05-20-2025 TSH 0.169 uIU/mL Low 0.300-4.200 [facility] Comment on above: Performed By: #### L 506.0400, L100.0100, L503.0105, L501.9520, L500.4100, L506.1000, L500.4050, L503.6150, L503.6550 #### [facility] [address] [place], [address] Uric Acidon 05-20-2025 URIC 4.7 mg/dL Normal 2.6-6.0 [facility] Comment on above: Result Comment: The drugs N-Acetylcysteine and Metamizole may falsely depress this assay. Performed By: #### L 501.1400, L506.0400, L3100.5475, L501.9520, L4600.0100, L505.7010 #### [facility] [address] [place], [place], [id number] Vitamin B12on 01-16-2025 Cobalamin (Vitamin B12) [Mass/Vol] 210 pg/mL Low 211-911 [facility] Comment on above: Performed By: #### L 506.0400, L100.0100, L503.0105, L501.9520, L500.4100, L506.1000, L500.4050, L503.6150, L503.6550 #### [facility] [address] [place], [place], [id number] Vitamin D,25 Hydroxyon 01-16 Vitamin D 25-OH 35.4 ng/mL Normal [facility] Comment on above: Result Comment: Sherice min D 25(OH) Status Range Deficiency <20 ng/mL (50nmol/L) Insufficiency 20 - 30 ng/mL (50 - 75 nmol/L) Sufficiency 30 - 100 ng/mL (75 - 250 nmol/L) Toxicity >100 ng/mL (>250 nmol/L) Performed By: #### L 506.0400, L100.0100, L503.0105, L501.9520, L500.4100, L506.1000, L500.4050, L503.6150, L503.6550 #### [facility] [address] [place], [place], [id number] CBC W/Diff, Automatedon 12-28 Absolute Lymph 1.48 X10 3/uL Normal 0.83-4.51 [facility] Comment on above: Performed By: #### L 506.0400, L100.0100, L503.0105, L501.9520, L500.4100, L506.1000, L500.4050, L503.6150, L503.6550 #### [facility] [address] [place], [address] Absolute Neut 3.1 X10 3/uL Normal 2.0-7.7 [facility] Comment on above: Performed By: #### L 506.0400, L100.0100, L503.0105, L501.9520, L500.4100, L506.1000, L500.4050, L503.6150, L503.6550 #### [facility] [address] [place], [address] (567) Basophils/100 WBC (Bld) 0.8 % Normal 0-1 [facility] Comment on above: Performed By: #### L 506.0400, L100.0100, L503.0105, L501.9520, L500.4100, L506.1000, L500.4050, L503.6150, L503.6550 #### [facility] [address] [place], [address] (491) Eosinophils/100 WBC (Bld) 3.6 % Normal 0-5 [facility] Comment on above: Performed By: #### L 506.0400, L100.0100, L503.0105, L501.9520, L500.4100, L506.1000, L500.4050, L503.6150, L503.6550 #### [facility] [address] [place], [address] (204) Erythrocyte distribution width (RBC) [Ratio] 13.2 % Normal 11.6-14.6 [facility] Comment on above: Performed By: #### L 506.0400, L100.0100, L503.0105, L501.9520, L500.4100, L506.1000, L500.4050, L503.6150, L503.6550 #### [facility] [address] [place], [address] (910 Hematocrit (Bld) [Volume fraction] 46.2 % Normal 37-47 [facility] Comment on above: Performed By: #### L 506.0400, L100.0100, L503.0105, L501.9520, L500.4100, L506.1000, L500.4050, L503.6150, L503.6550 #### [facility] [address] [place], [address] Hemoglobin (Bld) [Mass/Vol] 15.1 g/dL High 12.0-15.0 [facility] Comment on above: Performed By: #### L 506.0400, L100.0100, L503.0105, L501.9520, L500.4100, L506.1000, L500.4050, L503.6150, L503.6550 #### [facility] [address] [place], [address] IG% 0.600 Normal 0.0-0.9 [facility] Comment on above: Result Comment: IG% - Immature Granulocytes (promyelocytes, myelocytes and metamyelocytes) > 1% indicates that a LEFT SHIFT is Present. Performed By: #### L 506.0400, L100.0100, L503.0105, L501.9520, L500.4100, L506.1000, L500.4050, L503.6150, L503.6550 #### [facility] [address] [place], [address] Lymphocytes/100 WBC (Bld) 28.1 % Normal 19-41 [facility] Comment on above: Performed By: #### L 506.0400, L100.0100, L503.0105, L501.9520, L500.4100, L506.1000, L500.4050, L503.6150, L503.6550 #### [facility] [address] [place], [address] MCH (RBC) [Entitic mass] 30.7 pg Normal 27.0-32.0 [facility] Comment on above: Performed By: #### L 506.0400, L100.0100, L503.0105, L501.9520, L500.4100, L506.1000, L500.4050, L503.6150, L503.6550 #### [facility] [address] [place], [address] MCHC (RBC) [Mass/Vol] 32.7 g/dL Normal 32-36 [facility] Comment on above: Performed By: #### L 506.0400, L100.0100, L503.0105, L501.9520, L500.4100, L506.1000, L500.4050, L503.6150, L503.6550 #### [facility] [address] [place], [address] MCV (RBC) [Entitic vol] 93.9 fL Normal 81-99 [facility] Comment on above: Performed By: #### L 506.0400, L100.0100, L503.0105, L501.9520, L500.4100, L506.1000, L500.4050, L503.6150, L503.6550 #### [facility] [address] [place], [address] Monocytes/100 WBC (Bld) 8.4 % Normal 0-10 [facility] Comment on above: Performed By: #### L 506.0400, L100.0100, L503.0105, L501.9520, L500.4100, L506.1000, L500.4050, L503.6150, L503.6550 #### [facility] [address] [place], [address] Neutrophils/100 WBC (Bld) 58.5 % Normal 47-70 [facility] Comment on above: Performed By: #### L 506.0400, L100.0100, L503.0105, L501.9520, L500.4100, L506.1000, L500.4050, L503.6150, L503.6550 #### [facility] [address] [place], [address] Nucleated RBC (Bld) [#/Vol] 0 10*3/uL Normal 0-5 [facility] Comment on above: Performed By: #### L 506.0400, L100.0100, L503.0105, L501.9520, L500.4100, L506.1000, L500.4050, L503.6150, L503.6550 #### [facility] [address] [place], [address] Platelet mean volume (Bld) [Entitic vol] 10.6 fL Normal 6.2-12.0 [facility] Comment on above: Performed By: #### L 506.0400, L100.0100, L503.0105, L501.9520, L500.4100, L506.1000, L500.4050, L503.6150, L503.6550 #### [facility] [address] [place], [address] Platelets (Bld) [#/Vol] 240 10*3/uL Normal 150-450 [facility] Comment on above: Performed By: #### L 506.0400, L100.0100, L503.0105, L501.9520, L500.4100, L506.1000, L500.4050, L503.6150, L503.6550 #### [facility] [address] [place], [address] RBC (Bld) [#/Vol] 4.92 10*6/uL Normal 4.2-5.4 [facility] Comment on above: Performed By: #### L 506.0400, L100.0100, L503.0105, L501.9520, L500.4100, L506.1000, L500.4050, L503.6150, L503.6550 #### [facility] [address] [place], [address] RDW SD 45.1 fl High 35.1-43.9 [facility] Comment on above: Performed By: #### L 506.0400, L100.0100, L503.0105, L501.9520, L500.4100, L506.1000, L500.4050, L503.6150, L503.6550 #### [facility] [address] [place], [address] WBC (Bld) [#/Vol] 5.3 10*3/uL Normal 4.4-11.0 [facility] Comment on above: Performed By: #### L 506.0400, L100.0100, L503.0105, L501.9520, L500.4100, L506.1000, L500.4050, L503.6150, L503.6550 #### [facility] [address] [place], [address] Comprehensive Metabolic Prof vton 01-15-2025 Albumin [Mass/Vol] 3.7 g/dL Normal 3.2-5.0 [facility] Comment on above: Performed By: #### L 506.0400, L100.0100, L503.0105, L501.9520, L500.4100, L506.1000, L500.4050, L503.6150, L503.6550 #### [facility] [address] [place], [address] Albumin/Globulin [Mass ratio] 1.2 {ratio} Normal 0.9-2.4 [facility] Comment on above: Performed By: #### L 506.0400, L100.0100, L503.0105, L501.9520, L500.4100, L506.1000, L500.4050, L503.6150, L503.6550 #### [facility] [address] [place], [address] ALK P 66 U/L Normal 45-117 [facility] Comment on above: Performed By: #### L 506.0400, L100.0100, L503.0105, L501.9520, L500.4100, L506.1000, L500.4050, L503.6150, L503.6550 #### [facility] [address] [place], [place], [phone] (592) ALT [Catalytic activity/Vol] 22 U/L Normal 13-56 [facility] Comment on above: Performed By: #### L 506.0400, L100.0100, L503.0105, L501.9520, L500.4100, L506.1000, L500.4050, L503.6150, L503.6550 #### [facility] [address] [place], [address] AST [Catalytic activity/Vol] 16 U/L Normal 15-37 [facility] Comment on above: Performed By: #### L 506.0400, L100.0100, L503.0105, L501.9520, L500.4100, L506.1000, L500.4050, L503.6150, L503.6550 #### [facility] [address] [place], [place], [id number] Bilirubin [Mass/Vol] 0.50 mg/dL Normal 0.20-1.[address] [facility] Comment on above: Result Comment: For patients on eltrombopag therapy, use of Dimension [place] TBIL is not recommended. Performed By: #### L 506.0400, L100.0100, L503.0105, L501.9520, L500.4100, L506.1000, L500.4050, L503.6150, L503.6550 #### [facility] [address] [place], [place], [phone] (397) BUN/CRE 15.7 RATIO Normal 10-20 [facility] Comment on above: Performed By: #### L 506.0400, L100.0100, L503.0105, L501.9520, L500.4100, L506.1000, L500.4050, L503.6150, L503.6550 #### [facility] [address] [place], [address] CA,Total 9.5 mg/dL Normal 8.5-10.1 [facility] Comment on above: Performed By: #### L 506.0400, L100.0100, L503.0105, L501.9520, L500.4100, L506.1000, L500.4050, L503.6150, L503.6550 #### [facility] [address] [place], [address] Chloride [Moles/Vol] 104 mmol/L Normal 98-[address] [facility] Comment on above: Performed By: #### L 506.0400, L100.0100, L503.0105, L501.9520, L500.4100, L506.1000, L500.4050, L503.6150, L503.6550 #### [facility] [address] [place], [address] CO2 [Moles/Vol] 28.0 mmol/L Normal 21.0-32.0 [facility] Comment on above: Performed By: #### L 506.0400, L100.0100, L503.0105, L501.9520, L500.4100, L506.1000, L500.4050, L503.6150, L503.6550 #### [facility] [address] [place], [address] Creatinine [Mass/Vol] 0.57 mg/dL Normal 0.55-1.02 [facility] Comment on above: Result Comment: The validity of the calculated GFR GFRAA in patients over 70 years has not been determined. Clinical correlation is essential. Performed By: #### L 506.0400, L100.0100, L503.0105, L501.9520, L500.4100, L506.1000, L500.4050, L503.6150, L503.6550 #### [facility] [address] [place], [place], [id number] (424) EST GFR - AA 135 mL/min Normal >60 [facility] Comment on above: Result Comment: Afri can Indian GFR Calc Performed By: #### L 506.0400, L100.0100, L503.0105, L501.9520, L500.4100, L506.1000, L500.4050, L503.6150, L503.6550 #### [facility] [address] [place], [address] GAP 7 Normal 5-15 [facility] Comment on above: Performed By: #### L 506.0400, L100.0100, L503.0105, L501.9520, L500.4100, L506.1000, L500.4050, L503.6150, L503.6550 #### [facility] [address] [place], [address] (853) GFR/1.73 sq M.predicted among non-blacks MDRD (S/P/Bld) [Vol rate/Area] 111 mL/min/{1.73_m2} Normal >60 [facility] Comment on above: Result Comment: Non- GFR Calc Performed By: #### L 506.0400, L100.0100, L503.0105, L501.9520, L500.4100, L506.1000, L500.4050, L503.6150, L503.6550 #### [facility] [address] [place], [place], [phone] Globulin (S) [Mass/Vol] 3.2 g/dL Normal 2.2-4.2 [facility] Comment on above: Performed By: #### L 506.0400, L100.0100, L503.0105, L501.9520, L500.4100, L506.1000, L500.4050, L503.6150, L503.6550 #### [facility] [address] [place], [address] Glucose [Mass/Vol] 99 mg/dL Normal 74-106 [facility] Comment on above: Performed By: #### L 506.0400, L100.0100, L503.0105, L501.9520, L500.4100, L506.1000, L500.4050, L503.6150, L503.6550 #### [facility] [address] [place], [address] Potassium [Moles/Vol] 4.0 mmol/L Normal 3.5-5.1 [facility] Comment on above: Performed By: #### L 506.0400, L100.0100, L503.0105, L501.9520, L500.4100, L506.1000, L500.4050, L503.6150, L503.6550 #### [facility] [address] [place], [address] Sodium [Moles/Vol] 140 mmol/L Normal 136-145 [facility] Comment on above: Performed By: #### L 506.0400, L100.0100, L503.0105, L501.9520, L500.4100, L506.1000, L500.4050, L503.6150, L503.6550 #### [facility] [address] [place], [address] T PROT 6.9 g/dL Normal 6.4-8.2 [facility] Comment on above: Performed By: #### L 506.0400, L100.0100, L503.0105, L501.9520, L500.4100, L506.1000, L500.4050, L503.6150, L503.6550 #### [facility] [address] [place], [place], [id number] Urea nitrogen [Mass/Vol] 9 mg/dL Normal 7-18 [facility] Comment on above: Performed By: #### L 506.0400, L100.0100, L503.0105, L501.9520, L500.4100, L506.1000, L500.4050, L503.6150, L503.6550 #### [facility] [address] [place], [place], [id number] Ferritinon 01-15-2025 Ferritin [Mass/Vol] 227 ng/mL Normal 8-252 [facility] Comment on above: Performed By: #### L 506.0400, L100.0100, L503.0105, L501.9520, L500.4100, L506.1000, L500.4050, L503.6150, L503.6550 #### [facility] [address] [place], [place], [id number] Ironon 01-15-2025 Iron [Mass/Vol] 106 ug/dL Normal 50-170 [facility] Comment on above: Performed By: #### L 506.0400, L100.0100, L503.0105, L501.9520, L500.4100, L506.1000, L500.4050, L503.6150, L503.6550 #### [facility] [address] [place], [address] Lipid Profileon 01-15-2025 Cholesterol [Mass/Vol] 174 mg/dL Normal 200 [facility] Comment on above: Result Comment: <200 mg/dL Desirable 200-240 mg/dL Borderline >240 mg/dL High Risk Performed By: #### L 506.0400, L100.0100, L503.0105, L501.9520, L500.4100, L506.1000, L500.4050, L503.6150, L503.6550 #### [facility] [address] [place], [address] Cholesterol in HDL [Mass/Vol] 90 mg/dL Normal [facility] Comment on above: Result Comment: The drugs N-Acetylcysteine and Metamizole may falsely depress this assay. Reference Range HDL <40 mg/dL Low HDL Cholesterol HDL >or= 60 mg/dL High HDL Cholesterol Performed By: #### L 506.0400, L100.0100, L503.0105, L501.9520, L500.4100, L506.1000, L500.4050, L503.6150, L503.6550 #### [facility] [address] [place], [address] Cholesterol in LDL [Mass/Vol] 76 mg/dL Normal 0-130 [facility] Comment on above: Performed By: #### L 506.0400, L100.0100, L503.0105, L501.9520, L500.4100, L506.1000, L500.4050, L503.6150, L503.6550 #### [facility] [address] [place], [address] Cholesterol in VLDL [Mass/Vol] 8 mg/dL Normal 5-40 [facility] Comment on above: Performed By: #### L 506.0400, L100.0100, L503.0105, L501.9520, L500.4100, L506.1000, L500.4050, L503.6150, L503.6550 #### [facility] [address] [place], [address] Triglyceride [Mass/Vol] 41 mg/dL Normal [facility] Comment on above: Result Comment: The drugs N-Acetylcysteine and Metamizole may falsely depress this assay. Serum Triglycerides Reference Interval Normal <150 mg/dL Borderline high 150 - 199 mg/dL High 200 - 499 mg/dL Very High > or = 500 mg/dL Performed By: #### L 506.0400, L100.0100, L503.0105, L501.9520, L500.4100, L506.1000, L500.4050, L503.6150, L503.6550 #### [facility] [address] [place], [place], [id number] T4 Free Directon 01-15-2025 T4 FREE DIRECT 0.89 ng/dL Normal 0.76-1.46 [facility] Comment on above: Performed By: #### L 506.0400, L100.0100, L503.0105, L501.9520, L500.4100, L506.1000, L500.4050, L503.6150, L503.6550 #### [facility] [address] [place], [place], [id number] Thyroid Stim Hormone (TSH)on 01-15-2025 TSH 8.180 uIU/mL High 0.358-3.740 [facility] Comment on above: Performed By: #### L 506.0400, L100.0100, L503.0105, L501.9520, L500.4100, L506.1000, L500.4050, L503.6150, L503.6550 #### [facility] [address] [place], [place], [id number] Encounters Encounter Date Encounter Type Care Provider Facility Start: 06-22-2025 End: 06-22-2025 Emergency department patient visit PHYSICIAN [facility] Start: 05-20-2025 End: 05-20-2025 ambulatory Bria Sanchez [employer] Work Phone: -Laboratory Start: 05-20-2025 End: 05-20-[address] Nallely Nguyen MD -Laboratory Work Phone: Start: 05-20-2025 End: 05-20-2025 [facility] Facility:[facility] Start: 01-15-2025 End: 01-15-2025 [facility] Start: 07-20-[address] Ravi Maldonado Facility:[id number] Procedures Date Procedure Procedure Detail Performing Clinician Start: 05-20-2025 STEPHANIE measurement Bria Sanchez [employer] Work Phone: Comment on above: Performed at: [address] [id number] Director: Magan Doyle PhD, Phone: [phone] History of cholecystectomy S/P cholecyste ctomy Bria Sanchez [employer] Work Phone: Comment on above: 03/08/2018 Payers Date Payer Category Payer Self-pay 2021 Unknown [id number] 2021 Medicare [id number] 2016 Unknown [id number] 1955 Unknown [id number] [id number] 1955 Unknown [id number] Unknown [id number] 2.16.8 [id number] Unknown [id number] 2.16.8 [id number] Social History Date Type Detail Facility Start: 03-15-2018 Tobacco smoking stat us ILIS Never smoked tobacco (finding) [facility] Start: 1955 Sex Assigned At Female [facility] Progress note 01-18-2022 Note Date & Type Note Facility 01-18-2022 Note HNO ID: [id number] Author: Ivan Mcdonald MD Service: ? Author [...] staff. I have seen and examined Uma Garcia. I have discussed the examination findings, diagnosis, and treatment options with Uma Garcia and/or her family. I have also reviewed and agree with the assessment and plan as stated above and agree with all its relevant components. I gave the patient the opportunity to ask questions about the findings, diagnosis, and treatment options. [facility] Progress note 01-07-2022 Note Date & Type Note Facility 01-07-2022 Note HNO ID: [id number] Author: Santa Sun OD Service: ? Author Type: NETWORK SYSTEMS CONSULTANT Type: Progress Notes Filed: 01/07/2022 3:43 PM [...] week for follow up Santa Sun OD [facility] Evaluation note Note Date & Type Note Facility Evaluation note No assessment information availa [facility] Work Phone: Reason for referral (narrative) Note Date & Type Note Facility Reason for referral (narrative) No reason for referral information available [facility] Work Phone: Summary Purpose Family History No Family History Records Found Relationship Condition Age at Onset Recorded Date/T julia mother Malignant neoplasm of brain Unknown grandmother Malignant neoplasm of colon Unknown Advance Directives No Advanced Directives Records FoundNo Advanced Directives Records FoundNo Advanced Directives Records FoundNo Advanced Directives Records Found Additional Source Comments INFORMATION SOURCE (unrecogn ized section and content) DATE CREATED AUTHOR 02/17/2022 [facility] DATE CREATED AUTHOR AUTHOR'S ORGANIZ ATION 07/22/2023 [facility] DATE CREATED AUTHOR AUTHOR'S ORGANIZ ATION 05/25/2025 [facility] DATE CREATED AUTHOR AUTHOR'S ORGANIZ ATION 06/30/2025 [facility] Care Teams (unrecognized sec tion and content) Team Status: Active Member Role/Relationship Status Dates Dr. Ravi Maldonado MD Family Provider Active SLAVA Sanchez Primary Care Provider Active Team Status: Inactive Member Role/Relationship Status Dates SLAVA Sanchez Primary Care Provider Active Start: May 20, 2025 End: May 20, 2025 Dr. Nallely Nguyen MD Attending Provider Active Start: May 20, 2025 End: May 20, 2025 Dr. Nallely Nguyen MD Referring Provider Active Start: May 20, 2025 End: May 20, 2025 Goals (unrecognized section and content) Goals may be documented in a n alternate section FOR RECORDS PERTAINING TO PATIENTS WHO ARE [...] BE BASED ON THE PRIMARY CLINICAL RECORDS. [employer] provides no warranty or guarantee of the accuracy or completeness of information in this document.
== END | disposition home or self-care (01) ==
LOC: BFHLAB 11:06
PROVIDERS: PCP Nurse Practitioner Family; Visit Provider Nurse Practitioner Family
DX: E03.9 Hypothyroidism, unspecified (principal)
CPT/HCPCS: 36415; 84439; 84443

== ENCOUNTER 2025-09-07 13:41 | Emergency (ER) | payer MEDICARE, OTHER, SELFPAY ==
[2025-09-07 13:41] VITALS: BP 165/76; PULSE 74; RESP 16; TEMP 36.8; O2SAT 100
[2025-09-07 13:54] VITALS: BMI 34.2
[2025-09-07 14:24] LABS: Hematocrit 45.9 % (37-47); Hemoglobin 15.7 g/dL (12.0-15.0); Immature Granulocytes Count 0.020 X10^3/uL (0.0-0.0); Mean Corp Hgb Conc 34.2 g/dL (32-36); Mean Corpuscular Volume 90.9 fL (81-99); Mean Platelet Vol. 9.4 fl (6.2-12.0); NRBC Flagged by Analyzer 0 % (0-5); Platelet Count 275 K/mm3 (150-450); RBC Distribution Width CV 13.0 % (11.6-14.6); RBC Distribution Width SD 43.3 fl (35.1-43.9); Red Blood Count 5.05 M/mm3 (4.2-5.4); White Blood Count 9.9 K/mm3 (4.4-11.0)
--- NOTE | 2025-09-07 14:24 | EX.ED.DYSGE1 ---
HPI History of Present Illness Chief Complaint: Head Injury Detail of Chief Complaint: Head injury 2 months ago, headache since Monday and change in mental status Informant: patient and family Onset/Context/Timing Onset: Days (September 05) Context: Sudden Onset Timing: Continuous Quality: Severe Location: Occiput Current Severity: Severe Maximum Severity: Severe Worsened by: Nothing specific Relieved by: Nothing Associated Symptoms Associated Symptoms: Photophobia, slow to respond to questions and hesitation. Narrative Narrative: Patient is 69-year-old woman. She fell approximately 2 weeks ago had a significant hematoma right occipital region. She was seen at outside facility had a scan that was negative. She also has complained of hip pain since the fall. She did not have any images of her hip. She said she had onset of abrupt occipital headache this past September 05.'s been persistent. It does radiate upward slightly and down to her neck. There are no alleviating or exacerbating factors. There is no precipitating factors either. Person is with her is concerned because she is not responding as quickly. Patient admits she does not respond as quickly. She also reports some mild photophobia. She denies sonophobia. Denies ringing or ears or decreased hearing. Denies trouble with speech or swallowing. She denies paresthesia or anesthesia upper or lower extremity. She denies problems with balance or coordination. There is no history of aneurysm and no family history of subarachnoid hemorrhage. She does have history of thyroid disease. She states that her thyroid dose was changed approximately a month ago. She denies heat or cold intolerance. She denies weight gain or weight loss. She denies cardiac or respiratory symptoms. She denies abdominal pain, nausea, vomiting or diarrhea. She denies dysuria, frequency, urgency or hematuria. She does have history of GERD and hypertension. She is on a thiazide diuretic as well as SARAY inhibitor. There is a history of depression as well Prior similar symptoms: Yes Recent Illness/Hospitalization: No [facility] Medical History (Updated 09/07/25 @ 15:[address] Juliocesar Zarate MD) History of thyroid disease Nausea & vomiting Abdominal pain Cholelithiasis Hypertension Home Medications ?Medication ?Instructions ?Recorded ?Last Taken ?Type chlorthalidone 25 mg tablet 12.5 mg PO DAILY 03/05/18 Unknown History paroxetine HCl 10 mg tablet 10 mg PO DAILY 03/05/18 Unknown History hydrocodone-acetaminophen 5-325mg 1 tab PO Q6H PRN PRN Pain 3 days 09/07/25 Unknown Rx 5mg-325mg #10 TABLETS ivermectin 1 % topical cream 1 applic topical DAILY 09/07/25 Unknown History levothyroxine 112 mcg tablet 112 mcg PO DAILY 09/07/25 Unknown History lisinopril 20 mg tablet 20 mg PO DAILY 09/07/25 Unknown History ondansetron 4 mg disintegrating 4 mg PO Q8H PRN PRN Nausea #10 tabs 09/07/25 Unknown Rx tablet pantoprazole 20 mg tablet,delayed 20 mg PO DAILY 09/07/25 Unknown History release Allergy/AdvReac Type Severity Reaction Status Date / Time No Known Allergies Allergy Verified 09/07/25 13:47 Family History Mother Brain cancer Grandmother Colon cancer Surgical History S/P cholecystectomy Social History Smoking Status: Never smoker alcohol intake: current alcohol intake frequency: a few times a month substance use type: does not use ROS ROS ED Constitutional Constitutional ED: Denies chills, fever(s), subjective, sweats or weight loss Eyes Eyes: Reports other Details: Mild photophobia ; Denies blurry vision, change in vision or diplopia ENT ENT ED: Denies ear pain, rhinorrhea or sore throat Cardiovascular Cardiovascular: Denies chest pain, palpitations or racing heartbeat Respiratory/Chest Respiratory/Chest: Denies cough, dyspnea or dyspnea on exertion Gastrointestinal Gastrointestinal: Reports nausea; Denies abdominal pain, diarrhea or vomiting Genitourinary Genitourinary ED: Denies dysuria, hematuria or urinary frequency Musculoskeletal Musculoskeletal: Reports neck pain; Denies arthralgias, back pain or myalgias Integumentary Reports other Details: Hematoma lateral left thigh ; Denies abscess, Abrasions or rash Neurologic Neurologic: Reports headache(s) and weakness; Denies paresthesias Psychiatric Psychiatric: Reports depression; Denies anxiety or suicidal ideation Endocrine Endocrinology: Denies cold intolerance or heat intolerance Hematologic/Lymphatic Hematologic/Lymphatic: Reports systems reviewed and no addt'l complaints, except as documented EXAM Physical Exam Const Vital Signs: 09/07/25 13:41 09/07/25 13:54 Temperature 98.2 F Temperature Source Oral Pulse Rate 74 Respiratory Rate 16 Respiratory Effort Normal Non-Labored Blood Pressure 165/76 H Blood Pressure Mean 105 Pulse Ox 100 Oxygen Delivery Method Room Air Room Air Positive well nourished and well developed Constitutional Narrative: Patient does not appear alert. She is slow to respond to questions. She is oriented x 4. She answers factual questions accurately. General Appearance ED: well developed and NAD; Negative for pallor HEENT Reports moist mucous membranes HEENT Narrative: There is no evidence of trauma. There is no rashes noted. There is no palpable pression. There is no clinical findings of basal skull fracture. Eyes PERRL and EOMs intact bilaterally Eyes Narrative: Patient has nystagmus with forced lateral gaze that abates after 3 rapid movements. General Eye ED: Negative for pale conjunctiva or scleral icterus Neck no lymphadenopathy, supple and no JVD Neck Narrative: There are no meningeal findings. Resp normal respiratory effort and clear to auscultation bilaterally Cardio regular rate, regular rhythm, S1 normal heart sound, S2 normal heart sound and no murmurs GI normal to inspection, nondistended, normoactive bowel sounds, non-tender, non-distended and no masses; Negative for hepatosplenomegaly Back/Spine no CVA tenderness Extremity Extremity Narrative: Patient has a hematoma lateral mid to proximal thigh on the left. There is no pain the patient of the greater trochanteric region. Yohannes Anna 4 test does not cause any significant discomfort. If any she complains of mild discomfort over the left greater trochanteric region. There is no inguinal adenopathy. DP and PT pulse are palpable. Neuro oriented x3, CN's II-XII intact bilaterally and no sensory deficits noted Neuro Narrative: There is no dysmetria. There was no clonus Babinski sign noted either side. Sensorium / Orientation: Negative for alert Motor Exam: strength 5/5 throughout Psych Mood & Affect: depressed Skin no rashes or lesions noted, no wounds and skin turgor normal General Skin Exam: Negative for jaundice or pallor MDM MDM MDM Narrative Medical decision making narrative: With onset of headache need to rule out intracranial bleed. Need to consider subarachnoid hemorrhage. She does not have any meningeal findings however. She does not truly have photophobia even though she complains of light sensitivity. Will obtain CT of the head. CBC was obtained to assess white count platelet count as well as H&H. Since she has history of hypothyroidism her dose was changed will obtain a TSH to rule out hypothyroidism, under medicated. In my opinion the blood pressure 165 or 76 does not explain her symptoms. Because she does have pain over the left greater trochanteric will obtain x-ray of the hip as well. Lab Data Attestation: I reviewed the patient's lab results. Lab results narrative: CBC is unremarkable. Basic metabolic panel is unremarkable. TSH is elevated but improved from prior. It was 22 and now is 11.5. Labs: Laboratory Results - last 24 hr 09/07/25 14:17 WBC 9.9 RBC 5.05 Hgb 15.7 H Hct 45.9 MCV 90.9 MCH 31.1 MCHC 34.2 RDW Std Deviation 43.3 RDW Coeff of Ismael 13.0 Plt Count 275 MPV 9.4 Immature Gran % (Auto) 0.200 Neut % (Auto) 75.7 H Lymph % (Auto) 12.5 L [place] % (Auto) 9.3 Eos % (Auto) 2.1 Baso % (Auto) 0.2 Absolute Neuts (auto) 7.5 Absolute Lymphs (auto) 1.23 Nucleated RBC % 0 Sodium 138 Potassium 3.6 Chloride 100 Carbon Dioxide 25.7 Anion Gap 13 BUN 8 Creatinine 0.54 L Estim Creat Clear Calc 70.59 Est GFR (MDRD) Non-Af 100 BUN/Creatinine Ratio 14.3 Glucose 100 H Calcium 9.5 TSH 11.500 H Radiography Chest X-Ray - ED: Read by ED Physician (Three-view x-ray of the left hip reveals arthritic changes of the joint. There is no Insa fracture, subluxation or dislocation.) Diagnostic Testing: Clinical Impression(s) from Imaging Studies Hip/Pelvis X-Ray 09/07/25 14:28 IMPRESSION: No acute fracture or dislocation in the pelvis or left hip. Moderate osteoarthritis of the bilateral hips. Reading Location: [facility], [address] 09/07/25 14:33 IMPRESSION: Negative for acute intracranial pathology. Reading Location: [facility] The CT of the head interpretation was negative. CT was reviewed by me and I am in agreement there is no evidence of any intracranial pathology on the unenhanced scan. Treatment and Re-Evaluation :: Patient and family member were informed of results. Family member had multiple questions. They were answered. She will be discharged to home with appropriate home-going instructions and prescription for pain medication. Discharge Plan Triage Chief Complaint: Head Injury ED Provider: Juliocesar Zarate Dx/Rx/DC Orders Clinical Impression: Post-concussion headache, Traumatic hematoma of left thigh, Bilateral primary osteoarthritis of hip, Hypertension, Elevated TSH Instructions: Understanding Headache Pain, ED Hematoma Prescriptions: New hydrocodone-acetaminophen 5-325 mg tablet 1 tab PO Q6H PRN PRN (Reason: Pain) 3 Days Qty: 10 0RF ondansetron 4 mg tablet,disintegrating 4 mg PO Q8H PRN PRN (Reason: Nausea) Qty: 10 0RF No Action paroxetine HCl 10 MG tablet 10 mg PO DAILY chlorthalidone 25 MG tablet 12.5 mg PO DAILY ivermectin 1 % cream 1 applic topical DAILY lisinopril 20 mg tablet 20 mg PO DAILY pantoprazole 20 mg tablet,delayed release (DR/EC) 20 mg PO DAILY levothyroxine 112 mcg tablet 112 mcg PO DAILY Primary Care Provider: Bria Sanchez Referrals: Bria Sanchez, [facility] [facility] [facility] [Primary Care Provider, Family Practice] - 1 Week if not improving Print Language: Swedish Disposition Disposition: Home, Self Care
--- NOTE | 2025-09-07 14:28 | RAD_ITS ---
PROCEDURE: HIP, UNI W/ PELVIS 2-3 VIEWS 09/07/2025 REASON FOR EXAM: INJURY/PAIN TECHNIQUE: Procedure Code: RAD Modality: DX Procedure: HIP, UNI W/ PELVIS 2-3 VIEWS Laterality: Left hip COMPARISON: None available. FINDINGS: Bones: Osteophytic changes at the bilateral hip joints. No acute fracture. Joints: Normal anatomical alignment. There is [id number] joint space narrowing of the bilateral hip joints. The sacroiliac joints and pubic symphysis are unremarkable. Soft tissues: Unremarkable. Other: Mild degenerative changes of the lower lumbar spine. RAD/HIP, UNI W/ Pelvis 2-3 Views IMPRESSION: No acute fracture or dislocation in the pelvis or left hip. Moderate osteoarth ritis of the bilateral hips. Reading Location: [id number]
--- NOTE | 2025-09-07 14:33 | CT_ITS ---
PROCEDURE: BRAIN/HEAD WITHOUT CONTRAST 09/07/2025 REASON FOR EXAM: POSTTRAUMATIC HEADACHE TECHNIQUE: Procedure Code: CTBR Modality: CT Procedure: BRAIN/HEAD WITHOUT CONTRAST Coronal and Sagittal reconstruction series were provided. One or more dose reduction techniques were used (e.g., Automated exposure control, adjustment of the mA and/or kV according to patient size, use of iterative reconstruction technique. RADIATION DOSE SUMMARY: CTDlvol: 45 mGy DLP: 779.2 mGycm COMPARISON: None. FINDINGS: Cerebrum: Slight loss of cerebral volume. Negative for mass the frontal, parietal, temporal and occipital lobes otherwisenegative. White matter: Mild periventricular white matter changes. Cerebellum: Negative. Negative for mass. Negative for acute infarction. CSF pathways and ventricles: Negative. Negative for ventricular dilatation or obstruction. Basal ganglia and thalami: Negative. No acute infarctions. Brainstem: Midbrain, phuong and medulla negative. Calvarium: Negative. Negative for fractures. Orbital structures: Globes negative. Extraocular muscles negative. Paranasal sinuses: No air fluid levels. Remainder of the sinuses negative. Vascular structures: Mild calcifications of the distal intracranial internal carotid arteries. Soft tissues: Negative. Other: : Negative for acute intracranial hemorrhage. Negative for acute infarction. Remainder of exam negative. CT/Brain/Head without Contrast IMPRESSION: Negative for acute intracranial pathology. Reading Location: [id number]
[2025-09-07 14:47] LABS: Anion Gap 13 (5-15); BUN 8 mg/dL (4-19); BUN/Creat Ratio 14.3 RATIO (10-20); Calcium,Total 9.5 mg/dL (7.6-11.0); Carbon Dioxide 25.7 mmol/L (21.0-32.0); Chloride 100 mmol/L (98-108); Estimated Creatinine Clearance 70.59 ml/min (50-250); Glucose 100 mg/dL (70-99); Potassium 3.6 mmol/L (3.3-5.1)
[2025-09-07 16:11] VITALS: BP 115/68; PULSE 70; RESP 16; TEMP 36.4; O2SAT 97
== END 2025-09-07 16:13 | disposition home or self-care (01) ==
PROVIDERS: Emergency Provider Emergency Medicine; PCP Nurse Practitioner Family; Visit Provider Emergency Medicine
DX: G44.309 Post-traumatic headache, unspecified, not intractable (principal); S70.12XA Contusion of left thigh, initial encounter; W19.XXXA Unspecified fall, initial encounter; M16.0 Bilateral primary osteoarthritis of hip; I10 Essential (primary) hypertension; K21.9 Gastro-esophageal reflux disease without esophagitis; F32.A Depression, unspecified; E03.9 Hypothyroidism, unspecified; Z79.890 Hormone replacement therapy; Z79.899 Other long term (current) drug therapy
CPT/HCPCS: 70450; 73502; 80048; 84443; 85025; 96374; 96375; 99284; A4216; J2405

== ENCOUNTER → 2025-09-10 | Outpatient (CLI) | payer MEDICARE, OTHER, SELFPAY ==
--- NOTE | 2025-09-10 12:43 | RAD_ITS ---
PROCEDURE: CERV SPINE 4 OR 5 VIEWS 09/10/2025 REASON FOR EXAM: CERVICALGIA TECHNIQUE: Procedure Code: [facility] Modality: DX Procedure: CERV SPINE 4 OR 5 VIEWS COMPARISON: None. FINDINGS: No evidence of acute fracture or subluxation. Alignment is anatomic. Mild multilevel spondylotic changes. No evidence for high-grade osseous neural foraminal narrowing. No prevertebral soft tissue swelling or unusual mineralization. RAD/Cerv Spine 4 or 5 Views IMPRESSION: No fracture or malalignment. Mild spondylotic changes. Reading Location: [id number]
--- NOTE | 2025-09-10 14:51 | MRI_ITS ---
PROCEDURE: MRI BRAIN W/WO CONTRAST 09/10/2025 REASON FOR EXAM: ASSESS FOR ABNORMALITIES, HEAD PAIN 2 MONTHS POST FALL TECHNIQUE: Procedure Code: MRIBRWW Modality: MR Procedure: BRAIN W/WO CONTRAST Multiplanar and multisequential MRI of the brain was performed without and with IV gadolinium based contrast administration. CONTRAST: Clariscan VOLUME: 17 mL COMPARISON: CT head 09/07/2025. FINDINGS: Ventricular and sulcal size and configuration are within normal limits. No mass lesion or pathologic enhancement. No intracranial hemorrhage or extra-axial collection. No regions of abnormal restricted diffusion, susceptibility, or other significant parenchymal signal alteration. Minimal leukoaraiosis. Major intracranial vascular flow voids appear preserved. Absent [place] ocular lenses. Bilateral maxillary sinus mucosal polyps/retention cysts, greater on the right. No mastoid effusions. MRI/Brain W/WO Contrast IMPRESSION: No acute or otherwise concerning intracranial abnormality. Reading Location: [id number]
== END | disposition home or self-care (01) ==
LOC: MRI 14:40
PROVIDERS: PCP Nurse Practitioner Family; Referring Provider Nurse Practitioner Family; Visit Provider Nurse Practitioner Family
DX: R51.9 Headache, unspecified (principal); Z91.81 History of falling
CPT/HCPCS: 70553; 72050; A9575; A4216

== ENCOUNTER → 2025-11-07 | Outpatient (CLI) | payer MEDICARE, OTHER, SELFPAY | END | disposition home or self-care (01) | LOC: BFHLAB 11:02 | PROVIDERS: PCP Nurse Practitioner Family; Visit Provider Nurse Practitioner Family | DX: E03.9 Hypothyroidism, unspecified (principal) | CPT/HCPCS: 36415; 84439; 84443 ==